=== PATIENT | male | born 1945 | race Caucasian/White ===

== ENCOUNTER 2017-10-09 13:34 | Emergency (ER) | payer OTHER ==
[~2017-10-09 13:34] MED LIST: BACT800T5 PO; GLUCTAB PO; HYDR-3133 PO; HYDR12.56 PO; LOVA10TA; TRIA.1%T EX
[2017-10-09 13:39] VITALS: BP 110/84; PULSE 91; RESP 20; TEMP 98.3; O2SAT 94
[2017-10-09] MEDS ORDERED: GLIM4TAB PO (13:43)
[2017-10-09] MEDS ORDERED: COQ150CA PO (13:43)
[2017-10-09] MEDS ORDERED: LOSA100T PO (13:43)
[2017-10-09] MEDS ORDERED: HYDR25TA5 PO (13:43)
[2017-10-09] MEDS ORDERED: METF500T PO (13:43)
[2017-10-09] MEDS ORDERED: ASPI-516 CHEW (13:43)
[2017-10-09] MEDS ORDERED: AMLO10TA2 PO (13:43)
[2017-10-09] MEDS ORDERED: LIDOCAINE HCL 1% 50 ML VIAL INFIL ONE (13:45)
[2017-10-09] MEDS ORDERED: TETANUS/DIPHTHERIA TOXOID ADULT 0.5 ML VIAL IM ONE (13:45)
[2017-10-09] MEDS ORDERED: LIDOCAINE HCL 1% PF 30 ML VIAL ONE (14:06)
--- NOTE | 2017-10-09 14:48 | PD ---
HPI Chief Complaint: Fall Time Seen by Provider: 13:36 Travel History International Travel<30 days: No Contact w/Intl Traveler<30days: No Traveled to known affect area: No History of Present Illness HPI 71-year-old male that presents to the ED for evaluation of fall. Per patient he had a mechanical fall today where he landed backwards and hit the back of his head. Patient suffered a laceration for this. Patient called ambulance and brought him here for evaluation. He denies any blood thinners or loss of consciousness. Per patient he remembers the whole thing. He is having some issues secondary to ambulation from what his neurosurgeon believes to be an impinged nerve on his lower back. Patient actually is scheduled to see his neurosurgeon on Thursday to discuss possibility of surgery. Denies any urinary or bowel movement issues. Per patient he has minimal pain 2 out of 10 on the head. No neck pain. No arm pain or leg pain. No blurry vision or double vision. No allergies to medication. He is unsure of his last tetanus booster. No other medical problems reported at this time. PFSH Past Medical History Hx Anticoagulant Therapy: Yes High Cholesterol: Yes Diabetes: Yes Patient Takes Glucophage: Yes Diminished Hearing: No Hypertension: Yes Past Surgical History Tonsillectomy: Yes Other Surgery: Yes (RIGHT KNEE CAP REMOVED) Social History Alcohol Use: Yes ("rarely") Tobacco Use: No Substance Use: No Allergies-Medications (Allergen,Severity, Reaction): Coded Allergies: No Known Allergies (Verified Adverse Reaction, Unknown, 10/09/17) Reported Meds & Prescriptions Reported Meds & Active Scripts Active Reported Coq10 (Coenzyme Q10 (Ubidecarenone)) 50 Mg Cap 100 Mg PO DAILY Aspirin 81 Mg Chew 81 Mg CHEW DAILY Glimepiride 4 Mg Tab 4 Mg PO BIDAC Losartan (Losartan Potassium) 100 Mg Tab 100 Mg PO DAILY Hydrochlorothiazide 25 Mg Tab 25 Mg PO DAILY Amlodipine (Amlodipine Besylate) 10 Mg Tab 10 Mg PO DAILY Metformin (Metformin HCl) 500 Mg Tab 500 Mg PO BIDPC Review of Systems Except as stated in HPI: all other systems reviewed are Neg Physical Exam Narrative GENERAL: SKIN: Warm and dry. Patient has a laceration about 5 cm that is vertical on the right posterior head. Minimal bleeding noted. HEAD: Atraumatic. Normocephalic. EYES: Pupils equal and round. No scleral icterus. No injection or drainage. ENT: No nasal bleeding or discharge. Mucous membranes pink and moist. Tongue is midline. No uvula deviation. NECK: Trachea midline. No JVD. CARDIOVASCULAR: Regular rate and rhythm. No murmurs, S3, S4. RESPIRATORY: No accessory muscle use. Clear to auscultation. Breath sounds equal bilaterally. GASTROINTESTINAL: Abdomen soft, non-tender, nondistended. Hepatic and splenic margins not palpable. MUSCULOSKELETAL: Extremities without clubbing, cyanosis, or edema. No obvious deformities. Full range of motion of the upper and lower extremities bilaterally. 2+ pulses bilaterally. NEUROLOGICAL: Awake and alert. No obvious cranial nerve deficits. Motor grossly within normal limits. Five out of 5 muscle strength in the arms and legs. Normal speech. PSYCHIATRIC: Appropriate mood and affect; insight and judgment normal. Data Data Last Documented VS Vital Signs Date Time Temp Pulse Resp B/P (MAP) Pulse Ox O2 Delivery O2 Flow Rate FiO2 10/09/17 13:39 98.3 91 20 110/84 (93) 94 Orders Orders Wound Care (10/09/17 13:37) Lidocaine 1% Inj (50 Ml) (Xylocaine 1% I (10/09/17 13:45) Tetanus/Diphtheria Tox Adult (Tetanus/Di (10/09/17 13:45) Ct Brain W/O Iv Contrast(Rout) (10/09/17 13:37) Lidocaine Pf 1% Inj (Xylocaine-Mpf 1% In (10/09/17 14:06) MDM Medical Decision Making Medical Screen Exam Complete: Yes Emergency Medical Condition: Yes Medical Record Reviewed: Yes Interpretation(s) CT of the head was negative. Differential Diagnosis Head injury versus laceration versus abrasion versus skin tear Narrative Course 71-year-old male that presents to the ED for evaluation of head injury. Patient was properly examined and was found to have signs and symptoms consistent appears to be head injury. CT of the head was ordered. Patient after splinting procedure to the patient and he agreed to it laceration was repaired as stated in procedure note. Patient alert procedure well. Told to get nj removed in 7 days. Follow up with neurosurgeon. See ED worsening symptoms. CT was negative for acute disease. Wound care was endorsed. Patient was given a prescription for pain medication. Wound care was endorsed. Procedures Procedure Narrative LACERATION LOCATION: posterior head LENGTH: 5 cm NUMBER OF STITCHES/NJ: 11 nj REPAIR: The area of the laceration was prepped with Betadine and sterilely draped. The laceration was infiltrated with 1% Xylocaine. The wound was copiously irrigated and explored without evidence of foreign body, tendon injury or neurovascular injury. The wound was closed using sterile stapler. This was a 1 layer repair. A sterile dressing was applied. The patient was advised to keep the dressing clean and dry. Patient tolerated the procedure well. Diagnosis Primary Impression: Head injury, acute Qualified Codes: S09.90XA - Unspecified injury of head, initial encounter Additional Impression: Laceration of head Qualified Codes: S01.91XA - Laceration without foreign body of unspecified part of head, initial encounter Patient Instructions: General Instructions Additional Instructions: Wound care daily with soap and water. You can apply bandaid if needed. Neosporyn or OTC antibiotic ointment to area as needed twice a day for at least 2 weeks to help with scarring and prevent infection. Meoderma OTC for scarring if needed. Avoid sun exposure for 2 months as the sun could make scar darker and more noticeable. Get sutures removed in 5-7 days. See ED if worst. Med/Other Pt SpecificInfo: Prescription(s) given Disposition: 01 DISCHARGE HOME Condition: Stable Blair Pan Oct 09, 2017 14:47
--- NOTE | 2017-10-09 15:11 | RADRPT ---
EXAM DATE/TIME: 10/09/2017 14:56 [facility] COMPARISON: No previous studies available for comparison. INDICATIONS : Trauma. Fall. Posterior head laceration. RADIATION DOSE: 63.94 CTDIvol (mGy) MEDICAL HISTORY : Diabetes mellitus type 2. Hypertension. SURGICAL HISTORY : None. ENCOUNTER: Initial ACUITY: 1 day PAIN SCALE: 2/10 LOCATION: cranial TECHNIQUE: Multiple contiguous axial images were obtained of the head. Using automated exposure control and adj ustment of the mA and/or kV according to patient size, radiation dose was kept as low as reasonably a chievable to obtain optimal diagnostic quality images. DICOM format image data is available electro nically for review and comparison. FINDINGS: CEREBRUM: There is a low attenuation throughout the white matter. The ventricles are normal for age. No eviden ce of midline shift, mass lesion, hemorrhage or acute infarction. No extra-axial fluid collections a re seen. POSTERIOR FOSSA: The cerebellum and brainstem are intact. The 4th ventricle is midline. The cerebellopontine angle i s unremarkable. EXTRACRANIAL: The visualized portion of the orbits is intact. SKULL: The calvaria is intact. No evidence of skull fracture. CONCLUSION: Chronic ischemic small vessel vasculopathy. No acute intracranial abnormality. Cheikh Dennis MD on October 09, 2017 at 15:07 Board Certified Radiologist. This report was verified electronically.
[2017-10-09] MEDS ORDERED: TRAM50TA PO ×2 (15:16→15:17)
[2017-10-09 15:27] VITALS: BP 136/94
== END 2017-10-09 15:48 | disposition home or self-care (01) ==
LOC: PHEFT 13:34
DX: S01.01XA Laceration without foreign body of scalp, initial encounter (principal); E11.9 Type 2 diabetes mellitus without complications; I10 Essential (primary) hypertension; W19.XXXA Unspecified fall, initial encounter; Z23 Encounter for immunization; Z79.84 Long term (current) use of oral hypoglycemic drugs
CPT/HCPCS: 12002; 70450; 90471; 90714

== ENCOUNTER 2017-10-16 06:04 | Emergency (ER) | payer MEDICARE, OTHER ==
[~2017-10-16] VITALS: Ht 180.3 cm; Wt 110.0 kg
[~2017-10-16 06:04] MED LIST changes: +AMLO10TA2 PO; +ASPI-516 CHEW; -BACT800T5 PO; +COQ150CA PO; +GLIM4TAB PO; -GLUCTAB PO; -HYDR-3133 PO; -HYDR12.56 PO; +HYDR25TA5 PO; +LOSA100T PO; -LOVA10TA; +METF500T PO; +TRAM50TA PO; -TRIA.1%T EX
[2017-10-16 06:11] VITALS: BP 131/74; PULSE 78; RESP 18; TEMP 97.9; O2SAT 97
--- NOTE | 2017-10-16 06:44 | PD ---
HPI Chief Complaint: Wound/Suture/Staple Re-Check Time Seen by Provider: 06:40 Travel History International Travel<30 days: No Contact w/Intl Traveler<30days: No Traveled to known affect area: No History of Present Illness HPI The patient states she has had his nj in for 7 days in the scalp and he was told to come back to get them out in 7 days. He is not having any problems with his wound. PFSH Past Medical History Hx Anticoagulant Therapy: Yes High Cholesterol: Yes Diabetes: Yes Patient Takes Glucophage: Yes Diminished Hearing: No Hypertension: Yes ?: Not Past Surgical History Tonsillectomy: Yes Other Surgery: Yes (RIGHT KNEE CAP REMOVED) Social History Alcohol Use: Yes ("rarely") Tobacco Use: No Substance Use: No Allergies-Medications (Allergen,Severity, Reaction): Coded Allergies: No Known Allergies (Verified Adverse Reaction, Unknown, 10/09/17) Reported Meds & Prescriptions Reported Meds & Active Scripts Active Tramadol (Tramadol HCl) 50 Mg Tab 50 Mg PO Q6H PRN Reported Coq10 (Coenzyme Q10 (Ubidecarenone)) 50 Mg Cap 100 Mg PO DAILY Aspirin 81 Mg Chew 81 Mg CHEW DAILY Glimepiride 4 Mg Tab 4 Mg PO BIDAC Losartan (Losartan Potassium) 100 Mg Tab 100 Mg PO DAILY Hydrochlorothiazide 25 Mg Tab 25 Mg PO DAILY Amlodipine (Amlodipine Besylate) 10 Mg Tab 10 Mg PO DAILY Metformin (Metformin HCl) 500 Mg Tab 500 Mg PO BIDPC Review of Systems Except as stated in HPI: all other systems reviewed are Neg Physical Exam Narrative GENERAL: Well-nourished, well-developed patient. SKIN: Focused skin assessment warm/dry. Scalp wound is not infected and appears to be healing well. HEAD: Normocephalic. EYES: No scleral icterus. No injection or drainage. NECK: Supple, trachea midline. No JVD or lymphadenopathy. CARDIOVASCULAR: Regular rate and rhythm without murmurs, gallops, or rubs. RESPIRATORY: Breath sounds equal bilaterally. No accessory muscle use. GASTROINTESTINAL: Abdomen soft, non-tender, nondistended. MUSCULOSKELETAL: No cyanosis, or edema. BACK: Nontender without obvious deformity. No CVA tenderness. Data Data Last Documented VS Vital Signs Date Time Temp Pulse Resp B/P (MAP) Pulse Ox O2 Delivery O2 Flow Rate FiO2 10/16/17 06:11 97.9 78 18 131/74 (47) 97 [facility] Medical Decision Making Medical Screen Exam Complete: Yes Emergency Medical Condition: Yes Medical Record Reviewed: Yes Differential Diagnosis Healing laceration, infected laceration Narrative Course The laceration appears to be healing well on the nj will be removed. He is told that they are not a full strength in the be careful with the wound as far as skin tension is concerned. Diagnosis Primary Impression: Encounter for staple removal Additional Instructions: As we discussed, the wound is not a full strength and will not be for several weeks. Be careful with the wound and do not hit it or allow increased skin tension to occur across the wound. If you have problems, return to emergency department immediately. Med/Other Pt SpecificInfo: No Change to Meds Disposition: 01 DISCHARGE HOME Condition: Stable Renato Franco MD Oct 16, 2017 06:44
== END 2017-10-16 06:47 | disposition home or self-care (01) ==
LOC: PHED 06:04
DX: Z48.02 Encounter for removal of sutures (principal)
CPT/HCPCS: 99281